=== PATIENT | female | born 1960 | race Caucasian/White ===

== ENCOUNTER 2018-10-05 05:52 | Inpatient (IN) | payer OTHER ==
[2018-10-05] MEDS: LACTATED RINGER'S 1,000 ML IV (07:21)
[2018-10-05] MEDS ORDERED: ROCURONIUM 50 MG INJ (07:43)
[2018-10-05] MEDS ORDERED: LIDOCAINE 1% (MDV) 20 ML INJ (07:43)
[2018-10-05] MEDS ORDERED: PROPOFOL 20 ML (07:43)
[2018-10-05] MEDS ORDERED: MIDAZOLAM 1 MG/ML 2 ML INJ (07:43)
[2018-10-05] MEDS ORDERED: ETOMIDATE 20 MG INJ (07:43)
[2018-10-05] MEDS ORDERED: CLINDAMYCIN 900 MG/D5W (PMX) 50 ML IVPB (08:29)
[2018-10-05] MEDS: GELATIN SIZE 100 SPONGE (10:37)
[2018-10-05] MEDS: BUPIVACAINE 0.5%/EPI (SDV) 30 ML INJ (10:37)
[2018-10-05] MEDS: THROMBIN 5000 UNIT VIAL (10:37)
[2018-10-05] MEDS: HEPARIN 1000 UNITS/ML 10 ML INJ (10:37)
[2018-10-05] MEDS: VANCOMYCIN 1 GM INJ ×2 (10:38→10:46)
[2018-10-05] MEDS ORDERED: METOCLOPRAMIDE 10 MG INJ (14:01)
[2018-10-05] MEDS ORDERED: ONDANSETRON 4 MG INJ (14:01)
[2018-10-05] MEDS ORDERED: DEXAMETHASONE 4 MG/ML 5 ML INJ (14:01)
[2018-10-05] MEDS ORDERED: FAMOTIDINE 20 MG INJ (14:02)
[2018-10-05] MEDS ORDERED: morphine 10 MG INJ (14:14)
[2018-10-05] MEDS ORDERED: PROCHLORPERAZINE 10 MG TAB PO (15:00)
[2018-10-05] MEDS ORDERED: ACETAMINOPHEN 325 MG TAB PO (15:00)
[2018-10-05] MEDS ORDERED: HYDROmorphONE 1 MG/5 ML IV SYRINGE IV ×3 (15:00)
[2018-10-05] MEDS ORDERED: LABETALOL HCL 20MG INJ IV (15:00)
[2018-10-05] MEDS ORDERED: NACL 0.9% 3 ML SYG IV (15:00)
[2018-10-05] MEDS ORDERED: NALOXONE (0.4 MG/ML) INJ IV (15:00)
[2018-10-05] MEDS: HYDROmorphONE 0.2 MG/ML PCA IV (15:03)
[2018-10-05] MEDS: ONDANSETRON 4 MG INJ IV (16:03)
[2018-10-05] MEDS: hydrALAzine 20 MG INJ IV (16:04)
[2018-10-05] MEDS: MEPERIDINE 25 MG INJ IV (16:05)
[2018-10-05] MEDS: SOD CHLORIDE 0.45% 1,000 ML IV (17:21)
[2018-10-05] MEDS: LOSARTAN 50 MG TAB PO (18:00)
[2018-10-05] MEDS: VANCOMYCIN 1 GM (PMX) 250 ML IVPB (18:01)
[2018-10-05 19:01] LABS: ADD MAN DIFF? NO
[2018-10-05 19:02] LABS: ABNORMAL IP MESSAGE 1; BASOPHILS % 0.1 % (0.0-2.0); HEMATOCRIT 36.1 % (37.0-47.0); HEMOGLOBIN 12.1 g/dl (12.0-16.0); LYMPHOCYTES # 0.4 10^3/ul (0.8-2.9); LYMPHOCYTES % 5.2 % (15.0-51.0); MEAN CORPUSCULAR HEMOGLOBIN 32.4 pg (29.0-33.0); MEAN CORPUSCULAR HGB CONC 33.5 g/dl (32.0-37.0); MEAN CORPUSCULAR VOLUME 96.8 fl (82.0-101.0); MEAN PLATELET VOLUME 11.2 fl (7.4-10.4); MONOCYTE # 0.3 10^3/ul (0.3-0.9); NEUTROPHIL # 7.3 10^3/ul (1.6-7.5); PLATELET COUNT 170 10^3/UL (140-415); RED BLOOD COUNT 3.73 10^6/ul (4.20-5.40); RED CELL DISTRIBUTION WIDTH 14.9 % (11.5-14.5)
[2018-10-05 19:02] LABS: WHITE BLOOD COUNT 8.1 10^3/ul (4.8-10.8)
[2018-10-05 19:05] LABS: POSITIVE DIFF @See below
[2018-10-06] MEDS: SOD CHLORIDE 0.45% 1,000 ML IV ×2 (00:36→03:53)
[2018-10-06 05:30] LABS: HEMATOCRIT 33.1 % (37.0-47.0); HEMOGLOBIN 10.9 g/dl (12.0-16.0)
[2018-10-06] MEDS: VANCOMYCIN 1 GM (PMX) 250 ML IVPB (05:36)
[2018-10-06 05:41] LABS: ANION GAP 8 (5-13); BLOOD UREA NITROGEN 11 mg/dl (7-20); CALCIUM 8.4 mg/dl (8.4-10.2); CARBON DIOXIDE 26 mmol/L (21-31); CHLORIDE 106 mmol/L (97-110); CREATININE 0.73 mg/dl (0.44-1.00); Estimated GFR > 60 mL/min (>60); GLUCOSE 131 mg/dl (70-220); POTASSIUM 3.9 mmol/L (3.5-5.1); SODIUM 140 mmol/L (135-144)
[2018-10-06] MEDS: LEVOTHYROXINE 25 MCG TAB PO (06:07)
[2018-10-06] MEDS: LACTATED RINGER'S 1,000 ML IV (06:08)
[2018-10-06] MEDS: DOCUSATE SODIUM 100 MG CAP PO ×2 (08:49→20:12)
[2018-10-06] MEDS: LOSARTAN 50 MG TAB PO (08:50)
[2018-10-06] MEDS: HYDROCODONE/APAP (5/325) TAB PO (14:00)
[2018-10-06] MEDS: ACETAMINOPHEN 1000MG/100ML IV 100 ML IVPB (20:00)
[2018-10-07] MEDS: HYDROCODONE/APAP (5/325) TAB PO ×3 (00:26→18:30)
[2018-10-07 05:33] LABS: ADD MAN DIFF? NO
[2018-10-07 05:47] LABS: HEMATOCRIT 31.7 % (37.0-47.0); HEMOGLOBIN 10.5 g/dl (12.0-16.0); LYMPHOCYTES % 14.8 % (15.0-51.0); MEAN CORPUSCULAR HEMOGLOBIN 32.1 pg (29.0-33.0); MEAN CORPUSCULAR HGB CONC 33.1 g/dl (32.0-37.0); MEAN CORPUSCULAR VOLUME 96.9 fl (82.0-101.0); MONOCYTE # 0.7 10^3/ul (0.3-0.9); MONOCYTES % 10.1 % (0.0-11.0); NEUTROPHIL # 5.2 10^3/ul (1.6-7.5); NEUTROPHILS % 74.7 % (39.0-77.0); PLATELET COUNT 170 10^3/UL (140-415); RED BLOOD COUNT 3.27 10^6/ul (4.20-5.40); RED CELL DISTRIBUTION WIDTH 15.1 % (11.5-14.5)
[2018-10-07 06:15] LABS: ANION GAP 6 (5-13); BLOOD UREA NITROGEN 10 mg/dl (7-20); CALCIUM 8.5 mg/dl (8.4-10.2); CARBON DIOXIDE 28 mmol/L (21-31); CHLORIDE 103 mmol/L (97-110); Estimated GFR > 60 mL/min (>60); GLUCOSE 119 mg/dl (70-220); MAGNESIUM 1.7 mg/dl (1.7-2.5); PHOSPHORUS 2.7 mg/dl (2.5-4.9); POTASSIUM 3.5 mmol/L (3.5-5.1); SODIUM 137 mmol/L (135-144)
[2018-10-07] MEDS: LEVOTHYROXINE 25 MCG TAB PO (06:21)
[2018-10-07] MEDS: LOSARTAN 50 MG TAB PO (09:00)
[2018-10-07] MEDS: DOCUSATE SODIUM 100 MG CAP PO ×2 (09:11→20:44)
[2018-10-07] MEDS: ACETAMINOPHEN 1000MG/100ML IV 100 ML IVPB (09:20)
[2018-10-07] MEDS: POTASSIUM CHLORIDE (SR) 10 MEQ TAB PO (10:10)
[2018-10-07] MEDS: MAGNESIUM SULFATE 3 GM in DEXTROSE 5% 100 ML IVPB (10:10)
[2018-10-07] MEDS: HYDROmorphONE 0.5 MG/0.5 ML SYG IV ×2 (12:16→20:35)
[2018-10-08] MEDS: HYDROCODONE/APAP (5/325) TAB PO ×3 (01:10→17:39)
[2018-10-08 05:46] LABS: ADD MAN DIFF? NO
[2018-10-08 06:01] LABS: BASOPHILS % 0.3 % (0.0-2.0); EOSINOPHILS # 0.1 10^3/ul (0.0-0.5); EOSINOPHILS % 0.7 % (0.0-7.0); HEMATOCRIT 30.4 % (37.0-47.0); HEMOGLOBIN 10.1 g/dl (12.0-16.0); LYMPHOCYTES % 14.9 % (15.0-51.0); MEAN CORPUSCULAR HEMOGLOBIN 32.1 pg (29.0-33.0); MEAN CORPUSCULAR HGB CONC 33.2 g/dl (32.0-37.0); MEAN CORPUSCULAR VOLUME 96.5 fl (82.0-101.0); MEAN PLATELET VOLUME 11.7 fl (7.4-10.4); MONOCYTE # 0.6 10^3/ul (0.3-0.9); MONOCYTES % 8.7 % (0.0-11.0); NEUTROPHIL # 5.2 10^3/ul (1.6-7.5); PLATELET COUNT 178 10^3/UL (140-415); RED BLOOD COUNT 3.15 10^6/ul (4.20-5.40); RED CELL DISTRIBUTION WIDTH 14.8 % (11.5-14.5)
[2018-10-08] MEDS: LEVOTHYROXINE 25 MCG TAB PO (06:15)
[2018-10-08 06:18] LABS: ANION GAP 5 (5-13); BLOOD UREA NITROGEN 9 mg/dl (7-20); CALCIUM 8.7 mg/dl (8.4-10.2); CARBON DIOXIDE 30 mmol/L (21-31); CHLORIDE 102 mmol/L (97-110); CREATININE 0.66 mg/dl (0.44-1.00); Estimated GFR > 60 mL/min (>60); GLUCOSE 110 mg/dl (70-220); MAGNESIUM 2.2 mg/dl (1.7-2.5); POTASSIUM 3.8 mmol/L (3.5-5.1); SODIUM 137 mmol/L (135-144)
[2018-10-08 09:08] LABS: IRON 18 ug/dl (35-150)
[2018-10-08 09:18] LABS: % IRON SATURATION 7 % SAT (22-52); TOTAL IRON BINDING CAPACITY 253 ug/dl (241-421)
[2018-10-08] MEDS: DOCUSATE SODIUM 100 MG CAP PO ×2 (09:31→20:28)
[2018-10-08] MEDS: LOSARTAN 50 MG TAB PO (09:31)
[2018-10-08 20:35] LABS: ADD UMIC YES; UR ASCORBIC ACID NEGATIVE (NEGATIVE); UR BACTERIA FEW /HPF (NONE SEEN); UR BILIRUBIN (Dip) NEGATIVE (NEGATIVE); UR BLOOD (Dip) 2+ mg/dL (NEGATIVE); UR CLARITY SLIGHTLY CLOUDY (CLEAR); UR COLOR AMBER (YELLOW); UR GLUCOSE (Dip) NEGATIVE (NEGATIVE); UR KETONES (Dip) TRACE mg/dL (NEGATIVE); UR LEUKOCYTE ESTERASE (Dip) 1+ Leu/ul (NEGATIVE); UR NITRITE (Dip) NEGATIVE (NEGATIVE); UR RBC 3 /HPF (0-5); UR SPECIFIC GRAVITY (Dip) 1.014 (1.003-1.030); UR SQUAMOUS EPITHELIAL CELL MODERATE /HPF (FEW); UR TOTAL PROTEIN (Dip) NEGATIVE (NEGATIVE); UR UROBILINOGEN (Dip) 2+ mg/dL (NEGATIVE); UR WBC 19 /HPF (0-5)
[2018-10-09] MEDS: HYDROCODONE/APAP (5/325) TAB PO ×2 (01:03→09:27)
[2018-10-09 05:28] LABS: ADD MAN DIFF? NO
[2018-10-09 05:29] LABS: WHITE BLOOD COUNT 5.8 10^3/ul (4.8-10.8)
[2018-10-09 05:29] LABS: BASOPHILS % 0.3 % (0.0-2.0); EOSINOPHILS # 0.2 10^3/ul (0.0-0.5); EOSINOPHILS % 2.8 % (0.0-7.0); HEMATOCRIT 30.6 % (37.0-47.0); HEMOGLOBIN 10.2 g/dl (12.0-16.0); LYMPHOCYTES # 1.3 10^3/ul (0.8-2.9); LYMPHOCYTES % 21.9 % (15.0-51.0); MEAN CORPUSCULAR HGB CONC 33.3 g/dl (32.0-37.0); MEAN CORPUSCULAR VOLUME 95.9 fl (82.0-101.0); MEAN PLATELET VOLUME 11.2 fl (7.4-10.4); MONOCYTE # 0.5 10^3/ul (0.3-0.9); MONOCYTES % 8.6 % (0.0-11.0); NEUTROPHIL # 3.8 10^3/ul (1.6-7.5); NEUTROPHILS % 65.9 % (39.0-77.0); PLATELET COUNT 195 10^3/UL (140-415); RED BLOOD COUNT 3.19 10^6/ul (4.20-5.40); RED CELL DISTRIBUTION WIDTH 14.6 % (11.5-14.5)
[2018-10-09 06:13] LABS: ANION GAP 6 (5-13); BLOOD UREA NITROGEN 10 mg/dl (7-20); CALCIUM 8.4 mg/dl (8.4-10.2); CARBON DIOXIDE 30 mmol/L (21-31); CHLORIDE 101 mmol/L (97-110); Estimated GFR > 60 mL/min (>60); GLUCOSE 105 mg/dl (70-220); POTASSIUM 3.8 mmol/L (3.5-5.1); SODIUM 137 mmol/L (135-144)
[2018-10-09] MEDS: LEVOTHYROXINE 25 MCG TAB PO (07:40)
[2018-10-09] MEDS: DOCUSATE SODIUM 100 MG CAP PO (09:22)
[2018-10-09] MEDS: FERROUS FUMARATE (SR) TAB PO (09:22)
[2018-10-09] MEDS: LOSARTAN 50 MG TAB PO (09:23)
[2018-10-09] MEDS: HYDROCHLOROTHIAZIDE 12.5 MG CAP PO (09:24)
== END 2018-10-09 12:15 | DRG 454 ==
LOC: REC 05:52 → MS1 17:18
PROVIDERS: Orthopaedic Surgery
PROC: 0ST40ZZ Resection of Lumbosacral Disc, Open Approach (ICD-10-PCS; principal; 2018-10-05 07:30)
PROC: 0SG30A0 Fusion of Lumbosacral Joint with Interbody Fusion Device, Anterior Approach, Anterior Column, Open Approach (ICD-10-PCS; 2018-10-05 07:30)
PROC: 0SG10J1 Fusion of 2 or more Lumbar Vertebral Joints with Synthetic Substitute, Posterior Approach, Posterior Column, Open Approach (ICD-10-PCS; 2018-10-05 07:30)
PROC: 4A11X4G Monitoring of Peripheral Nervous Electrical Activity, Intraoperative, External Approach (ICD-10-PCS; 2018-10-05 07:30)
DX: M51.17 Intervertebral disc disorders with radiculopathy, lumbosacral region (principal); Z68.41 Body mass index [BMI] 40.0-44.9, adult; K56.7 Ileus, unspecified; M48.07 Spinal stenosis, lumbosacral region; E66.01 Morbid (severe) obesity due to excess calories; I10 Essential (primary) hypertension; E03.9 Hypothyroidism, unspecified; D64.9 Anemia, unspecified; R05 Cough
CPT/HCPCS: 71045; 72114; 80048; 81001; 82728; 83540; 83735; 84100; 85014; 85018; 85025; 86850; 86900; 86901; 86920; 87040-91; 87086; 88304; 97110; 97116; 97162; 97530

== ENCOUNTER 2018-10-09 13:44 | Inpatient (IN) | payer OTHER ==
[2018-10-09] MEDS ORDERED: PENDING SANTYL ORDER FOR WOUND CARE XX (14:00)
[2018-10-09] MEDS ORDERED: HYDROmorphONE 0.5 MG/0.5 ML SYG IV (15:00)
[2018-10-09] MEDS ORDERED: ACETAMINOPHEN 325 MG TAB PO (15:00)
[2018-10-09] MEDS ORDERED: ONDANSETRON (ODT) 4 MG TAB ODT (15:00)
[2018-10-09] MEDS ORDERED: LACTULOSE 30ML CUP PO (15:00)
[2018-10-09] MEDS ORDERED: HYDROCODONE/APAP (5/325) TAB PO (15:00)
[2018-10-09] MEDS ORDERED: PROCHLORPERAZINE 10 MG TAB PO (15:00)
[2018-10-09] MEDS: HYDROCODONE/APAP (5/325) TAB PO ×2 (17:48→21:53)
[2018-10-09 20:19] LABS: ADD UMIC YES; UR ASCORBIC ACID NEGATIVE (NEGATIVE); UR BACTERIA FEW /HPF (NONE SEEN); UR BILIRUBIN (Dip) NEGATIVE (NEGATIVE); UR BLOOD (Dip) 1+ mg/dL (NEGATIVE); UR CLARITY CLEAR (CLEAR); UR COLOR YELLOW (YELLOW); UR GLUCOSE (Dip) NEGATIVE (NEGATIVE); UR KETONES (Dip) NEGATIVE (NEGATIVE); UR LEUKOCYTE ESTERASE (Dip) 2+ Leu/ul (NEGATIVE); UR NITRITE (Dip) NEGATIVE (NEGATIVE); UR RBC 1 /HPF (0-5); UR SPECIFIC GRAVITY (Dip) 1.009 (1.003-1.030); UR TOTAL PROTEIN (Dip) NEGATIVE (NEGATIVE); UR UROBILINOGEN (Dip) 2+ mg/dL (NEGATIVE); UR WBC 35 /HPF (0-5)
[2018-10-09] MEDS: DOCUSATE SODIUM 100 MG CAP PO (21:51)
[2018-10-09] MEDS: FERROUS FUMARATE (SR) TAB PO (21:51)
[2018-10-10] MEDS: HYDROCHLOROTHIAZIDE 12.5 MG CAP PO (06:29)
[2018-10-10] MEDS: LEVOTHYROXINE 25 MCG TAB PO (06:29)
[2018-10-10 06:43] LABS: ADD MAN DIFF? NO
[2018-10-10 06:44] LABS: WHITE BLOOD COUNT 4.8 10^3/ul (4.8-10.8)
[2018-10-10 06:44] LABS: BASOPHILS % 0.4 % (0.0-2.0); EOSINOPHILS # 0.2 10^3/ul (0.0-0.5); EOSINOPHILS % 4.8 % (0.0-7.0); HEMATOCRIT 35.3 % (37.0-47.0); HEMOGLOBIN 11.6 g/dl (12.0-16.0); LYMPHOCYTES # 1.2 10^3/ul (0.8-2.9); LYMPHOCYTES % 24.5 % (15.0-51.0); MEAN CORPUSCULAR HEMOGLOBIN 31.4 pg (29.0-33.0); MEAN CORPUSCULAR HGB CONC 32.9 g/dl (32.0-37.0); MEAN CORPUSCULAR VOLUME 95.7 fl (82.0-101.0); MEAN PLATELET VOLUME 11.1 fl (7.4-10.4); MONOCYTE # 0.4 10^3/ul (0.3-0.9); MONOCYTES % 9.1 % (0.0-11.0); NEUTROPHIL # 2.9 10^3/ul (1.6-7.5); NEUTROPHILS % 60.8 % (39.0-77.0); PLATELET COUNT 244 10^3/UL (140-415); RED BLOOD COUNT 3.69 10^6/ul (4.20-5.40); RED CELL DISTRIBUTION WIDTH 14.6 % (11.5-14.5)
[2018-10-10 07:16] LABS: ALANINE AMINOTRANSFERASE 48 IU/L (13-69); ALBUMIN 3.6 g/dl (3.3-4.9); ALBUMIN/GLOBULIN RATIO 1.05; ALKALINE PHOSPHATASE 102 IU/L (42-121); ANION GAP 7 (5-13); ASPARTATE AMINO TRANSFERASE 59 IU/L (15-46); BLOOD UREA NITROGEN 11 mg/dl (7-20); CALCIUM 9.2 mg/dl (8.4-10.2); CARBON DIOXIDE 31 mmol/L (21-31); CHLORIDE 99 mmol/L (97-110); CREATININE 0.65 mg/dl (0.44-1.00); Estimated GFR > 60 mL/min (>60); GLUCOSE 103 mg/dl (70-220); POTASSIUM 3.5 mmol/L (3.5-5.1); SODIUM 137 mmol/L (135-144)
[2018-10-10] MEDS: SENNA TAB PO (08:35)
[2018-10-10] MEDS: DOCUSATE SODIUM 100 MG CAP PO ×2 (08:35→21:23)
[2018-10-10] MEDS: FERROUS FUMARATE (SR) TAB PO ×2 (08:35→21:23)
[2018-10-10] MEDS: HYDROCODONE/APAP (5/325) TAB PO ×3 (08:36→21:45)
[2018-10-10] MEDS: LOSARTAN 50 MG TAB PO (08:38)
[2018-10-10] MEDS: MAGNESIUM HYDROXIDE 30ML CUP PO (21:27)
[2018-10-11] MEDS: HYDROCHLOROTHIAZIDE 12.5 MG CAP PO (06:50)
[2018-10-11] MEDS: LEVOTHYROXINE 25 MCG TAB PO (06:50)
[2018-10-11] MEDS: DOCUSATE SODIUM 100 MG CAP PO ×2 (08:57→20:03)
[2018-10-11] MEDS: MULTIVITAMINS THERAPEUTIC TAB PO (08:59)
[2018-10-11] MEDS: HYDROCODONE/APAP (5/325) TAB PO ×2 (08:59→20:00)
[2018-10-11] MEDS: SENNA TAB PO (09:00)
[2018-10-11] MEDS: FERROUS FUMARATE (SR) TAB PO ×2 (09:00→20:00)
[2018-10-11] MEDS: LOSARTAN 50 MG TAB PO (09:01)
[2018-10-11] MEDS: MAGNESIUM HYDROXIDE 30ML CUP PO (20:08)
[2018-10-12] MEDS: LEVOTHYROXINE 25 MCG TAB PO (06:33)
[2018-10-12] MEDS: HYDROCHLOROTHIAZIDE 12.5 MG CAP PO (06:34)
[2018-10-12] MEDS: HYDROCODONE/APAP (5/325) TAB PO ×3 (06:34→21:14)
[2018-10-12] MEDS: DOCUSATE SODIUM 100 MG CAP PO ×2 (09:00→21:14)
[2018-10-12] MEDS: SENNA TAB PO (09:00)
[2018-10-12] MEDS: MULTIVITAMINS THERAPEUTIC TAB PO (09:22)
[2018-10-12] MEDS: FERROUS FUMARATE (SR) TAB PO ×2 (09:22→21:14)
[2018-10-12] MEDS: LOSARTAN 25 MG TAB PO (09:23)
[2018-10-12 10:30] LABS: ANION GAP 10 (5-13); BLOOD UREA NITROGEN 17 mg/dl (7-20); CALCIUM 9.6 mg/dl (8.4-10.2); CARBON DIOXIDE 27 mmol/L (21-31); CHLORIDE 100 mmol/L (97-110); CREATININE 0.67 mg/dl (0.44-1.00); Estimated GFR > 60 mL/min (>60); GLUCOSE 116 mg/dl (70-220); MAGNESIUM 2.2 mg/dl (1.7-2.5); POTASSIUM 4.1 mmol/L (3.5-5.1); SODIUM 137 mmol/L (135-144)
[2018-10-12 16:24] LABS: ADD UMIC YES; UR ASCORBIC ACID NEGATIVE (NEGATIVE); UR BACTERIA FEW /HPF (NONE SEEN); UR BILIRUBIN (Dip) NEGATIVE (NEGATIVE); UR BLOOD (Dip) 1+ mg/dL (NEGATIVE); UR CLARITY CLEAR (CLEAR); UR COLOR YELLOW (YELLOW); UR GLUCOSE (Dip) NEGATIVE (NEGATIVE); UR KETONES (Dip) NEGATIVE (NEGATIVE); UR LEUKOCYTE ESTERASE (Dip) TRACE Leu/ul (NEGATIVE); UR NITRITE (Dip) NEGATIVE (NEGATIVE); UR RBC 1 /HPF (0-5); UR SPECIFIC GRAVITY (Dip) 1.005 (1.003-1.030); UR TOTAL PROTEIN (Dip) NEGATIVE (NEGATIVE); UR UROBILINOGEN (Dip) NEGATIVE (NEGATIVE); UR WBC 7 /HPF (0-5)
[2018-10-13] MEDS: LEVOTHYROXINE 25 MCG TAB PO (06:29)
[2018-10-13] MEDS: HYDROCODONE/APAP (5/325) TAB PO (06:30)
[2018-10-13] MEDS: HYDROCHLOROTHIAZIDE 12.5 MG CAP PO (06:30)
[2018-10-13] MEDS: SENNA TAB PO (08:30)
[2018-10-13] MEDS: FERROUS FUMARATE (SR) TAB PO (08:30)
[2018-10-13] MEDS: DOCUSATE SODIUM 100 MG CAP PO (08:30)
[2018-10-13] MEDS: MULTIVITAMINS THERAPEUTIC TAB PO (08:30)
[2018-10-13] MEDS: LOSARTAN 50 MG TAB PO (08:31)
== END 2018-10-13 12:03 | disposition home health service (06) | DRG 561 ==
LOC: VRC 13:44
DX: Z47.89 Encounter for other orthopedic aftercare (principal); I10 Essential (primary) hypertension; E03.9 Hypothyroidism, unspecified; R52 Pain, unspecified; D50.9 Iron deficiency anemia, unspecified; Z74.09 Other reduced mobility
CPT/HCPCS: 72100; 80048; 80053; 81001; 83735; 85025; 87081; 87086; 97110; 97116; 97163; 97530; 97535